=== PATIENT | female | born 1980 | race Caucasian/White ===

== ENCOUNTER 2023-11-06 14:02 | Emergency (ER) | payer MEDICAID, SELFPAY ==
[2023-11-06 14:24] VITALS: BP 137/71; PULSE 95; RESP 16; TEMP 36.6; O2SAT 96; BMI 34.5
--- NOTE | 2023-11-06 15:40 | ED_ITS ---
HPI - General Adult General Date Seen: 11/06/23 Chief complaint: Ear/Nose/Throat Problem Stated complaint: Sinus infection Time Seen by Provider: 11/06/23 15:22 Source: patient Mode of arrival: ambulatory Limitations: no limitations History of Present Illness HPI narrative: Patient is a 43-year-old woman who presents with concerns about possible sinus infection. She said that she got a cold last week, felt like she was getting better but over the past couple of days she feels like she is getting more head congestion and facial pain especially when she leans over. Maybe low-grade feve rs although she is not sure. Her ears have been bothering her as well, she says her chiropractor looked at them a few days ago and said there was a little redness. Related Data Home Medications Medication Instructions Recorded Confirmed atenolol 25 mg tablet 25 mg PO QDAY 09/01/22 01/29/23 metformin 500 mg tablet 500 mg PO BIDWMEAL 09/01/22 01/29/23 progesterone micronized 100 mg 100 mg PO QAM 09/01/22 01/29/23 capsule Previous Rx's Medication Instructions Recorded amoxicillin 875 mg-potassium 1 tab PO BID #20 tabs 11/06/23 clavulanate 125 mg tablet Allergies Allergy/AdvReac Type Severity Reaction Status Date / Time No Known Drug Allergies Allergy Verified 01/29/23 12:31 Review of Systems Status of ROS: Reports: 6 or more systems reviewed and unremarkable except as noted in History and below [facility] Social History Smoking Status: Never smoker Exam Narrative: Exam Narrative: Vital signs as noted above. In general, an alert, well-appearing patient. Head: Normocephalic, atraumatic. Eyes: Pupils are equal reactive. Extraocular movements are full. Conjunctivae are normal. ENT: Mucous membranes are moist. Throat is normal. TMs normal bilaterally. Neck: Supple without lymphadenopathy. Heart: Regular rate and rhythm. No murmur or rub. Lungs: Clear bilaterally. No increased work of breathing, crackles or wheezes. Neurologic: Patient is alert and oriented to person and place. Speech is fluent. Face is symmetric. Moves all extremities equally. Affect: Normal. Skin: Warm and dry. Well perfused. Const: Vital Signs, click to edit/add: Vital Signs - 24 hr 11/06/23 14:24 Temperature 97.9 F Pulse Rate [Pulse Oximeter] 95 Respiratory Rate 16 Blood Pressure [Ri ght Upper Arm] 137/71 Pulse Oximetry 96 Oxygen Delivery Me thod Room Air Documenting provider has reviewed patient's vital signs: yes Course Course ED Course: Discussed with her that at the 1 week felix it is unlikely this represents bacterial sinusitis, it is more likely to be sinus congestion due to viral upper respiratory infection. I recommend giving this another couple days using ibuprofen and/or Tylenol, pseudoephedrine, and see how she does. I did send a prescription to the pharmacy for her for Augmentin, if she feels that she is worsening over the next few days she can start that. Return at any time for severe symptoms despite treatment, follow-up with primary care as needed. Vital Signs Vital signs: Initial Vital Signs Temperature 97.9 F 11/06/23 14:24 Temperature Source Temporal Artery Scan 11/06/23 14:24 Pulse Rate 95 11/06/23 14:24 Pulse Rhythm Regular 11/06/23 14:24 Respiratory Rate 16 11/06/23 14:24 Blood Pressure 137/71 11/06/23 14:24 Blood Pressure Mean 93 11/06/23 14:24 Blood Pressure Position Sitting 11/06/23 14:24 Pulse Oximetry 96 11/06/23 14:24 Oxygen Delivery Method Room Air 11/06/23 14:24 Vital Signs Temperature 97.9 F 11/06/23 14:24 Pulse Rate 95 11/06/23 14:24 Respiratory Rate 16 11/06/23 14:24 Blood Pressure 137/71 11/06/23 14:24 Pulse Oximetry 96 11/06/23 14:24 Oxygen Delivery Method Room Air 11/06/23 14:24 Temperature 97.9 F 11/06/23 14:24 Pulse Rate 95 11/06/23 14:24 Respiratory Rate 16 11/06/23 14:24 Blood Pressure 137/71 11/06/23 14:24 Pulse Oximetry 96 11/06/23 14:24 Oxygen Delivery Method Room Air 11/06/23 14:24 Discharge Plan Discharge Clinical Impression: Sinusitis Patient Disposition: Home, Self-Care Condition: Stable Instructions: Sinusitis (ED) Additional Instructions: Recommend giving this another couple days of ibuprofen and/or Tylenol, pseudoephedrine, humidified air. If you are not improving or feeling worse you can start the antibiotic as prescribed. Return at any time for severe worsening despite treatment. Prescriptions: New amoxicillin-pot clavulanate 875-125 mg tablet 1 tab PO BID Qty: 20 0RF No Action atenolol 25 mg tablet 25 mg PO QDAY progesterone micronized 100 mg capsule 100 mg PO QAM Rx Instructions: off 7 days; repeat cycle metformin 500 mg tablet 500 mg PO BIDWMEAL Follow Up/Referrals: Mariah Benson MD [Primary Care Provider] - Stand Alone Forms: [employer] Info Instructions
== END 2023-11-06 15:50 | disposition home or self-care (01) ==
LOC: ED 15:46
PROVIDERS: Emergency Provider Emergency Medicine; PCP Family Medicine
DX: J32.9 Chronic sinusitis, unspecified (principal)
CPT/HCPCS: 99283